=== PATIENT | male | born 1995 | race African-American/Black ===

== ENCOUNTER 2017-06-09 11:46 | Emergency (ER) | payer OTHER ==
[~2017-06-09] VITALS: Ht 185.4 cm; Wt 82.6 kg
[2017-06-09 12:22] LABS: BACTERIA,URINE FEW /HPF (0-FEW); BILIRUBIN,URINE NEG (NEG); CLARITY,URINE HAZY; COLOR,URINE AMBER; GLUCOSE,URINE NEG (NEG); GRANULAR CASTS,URINE OCC /HPF; HYALINE CASTS, URINE OCC /HPF; NITRITE,URINE NEG (NEG); RBC,URINE OCC /HPF (0-2); SQUAMOUS EPITHELIAL CELL,UR OCC /LPF; UROBILINOGEN,URINE 1 mg/dL (0.2 mg/dL)
--- NOTE | 2017-06-09 12:27 | PHYS DOC ---
Past History Past Medical History: No Pertinent History Past Surgical History: No Surgical History Alcohol Use: Occasionally Drug Use: None Adult General Chief Complaint Chief Complaint: PAIN ON URINATION HPI HPI Patient is a pleasant 21-year-old -[place] male who presents with dysuria and a penile discharge after having unprotected intercourse with a new sexual partner a days ago. Patient has had a history of STD in the past where he received treatment and his symptoms cleared up. He medical about 8 days ago at the club had unprotected sex with this particular individual and 4 days ago developed a clear discharge from his penis. He denies any fevers, chills, abdominal pain, difficulty urinating, rash, joint pain, joint swelling or headache. He denies any back pain, he also further denies any rash or associated lesions with this particular discharge. Review of Systems Review of Systems Constitutional: Denies fever or chills [] GI: Denies abdominal pain, nausea, vomiting, bloody stools or diarrhea [] : Patient does have a complaint of mild dysuria and discharge without hematuria urgency or frequency Musculoskeletal: Denies back pain or joint pain [] Integument: Denies rash or skin lesions [] Neurologic: Denies headache, Allergies Allergies Allergies Coded Allergies Type Severity Reaction Last Updated Verified No Known Drug Allergies 06/09/17 No Physical Exam Physical Exam Vital signs stable of the ones recorded on the chart. Constitutional: Well developed, well nourished, no acute distress, non-toxic appearance. [] Abdomen: Bowel sounds normal, soft, no tenderness, no masses, no pulsatile masses. : Normal external male genitalia at the glans and head of the penis there is a slight clear discharge. There is no lesions, he does some slight reactive lymphadenopathy in inguinal crease bilaterally and no evidence of rash, abscess , skin breakdown. There are no vesicles. Patient has no testicular tenderness to palpation he has a normal testicular lie with normal cremasteric reflex.[] Skin: Warm, dry, no erythema, no rash. [] Neurologic: Alert and oriented X 3, . [] Psychologic: Affect normal, judgement normal, mood normal. [] Current Patient Data Vital Signs Vital Signs Date Time Temp Pulse Resp B/P (MAP) Pulse Ox O2 Delivery O2 Flow Rate FiO2 06/09/17 12:00 98.4 97 16 99 Room Air EKG EKG [] Radiology/Procedures Radiology/Procedures [] Course & Med Decision Making Course & Med Decision Making Pertinent Labs and Imaging studies reviewed. (See chart for details) [he presents with a urethritis picture. Patient provided urine sample without issue no signs of infection, on physical exam there is clear signs of urethritis patient was given a dose of 1 g of azithromycin by mouth and 2-50 mg of IM Rocephin to treat both nongonococcal and gonococcal urethritis. I have given him empiric treatment and asked him to follow-up with his regular primary care doctor and to inform his other sexual partners of this exposure. Dragon Disclaimer Dragon Disclaimer This chart was dictated in whole or in part using Voice Recognition software in a busy, high-work load, and often noisy Emergency Department environment. It may contain unintended and wholly unrecognized errors or omissions. Departure Departure: Impression: Primary Impression: Urethritis Disposition: 01 HOME, SELF-CARE Condition: STABLE Referrals: PCP,UNKNOWN (PCP) Patient Instructions: Urethritis, Adult Additional Instructions: My discharge plan Follow up: In addition patient is asked to followup with their primary doctor, within a week for followup examination and to address patient's ongoing medical conditions. Because patient does not have a regular medical doctor, a local physician Resource Sheet will be provided to establish care primary care. Patient is advised that in the Emergency Department primary complaints are addressed and only in light of known signs and symptoms. Patient should return immediately to the emergency department if new signs and symptoms develop or patient's condition worsens in any way. At time of discharge patient was in stable condition and had verbalized understanding of the discharge instructions. If you've any identified your sexual partner please inform her of your sexual transmitted disease. She will need treatment as well KEYON HAM MD Jun 09, 2017 12:27
[2017-06-09 12:50] VITALS: BP 134/77
[2017-06-09] MEDS ORDERED: cefTRIAXone IM 250 MG VIAL IM ONE (13:00)
[2017-06-09] MEDS ORDERED: AZITHROMYCIN 250 MG TABLET. PO ONE (13:00)
== END 2017-06-09 12:53 | disposition home or self-care (01) ==
LOC: ER 11:46
DX: N34.2 Other urethritis (principal)
CPT/HCPCS: 81001; 87086; 96372; 99284; J0456; J0696

== ENCOUNTER 2017-08-25 20:38 | Emergency (ER) | payer OTHER ==
[~2017-08-25] VITALS: Ht 185.4 cm; Wt 82.6 kg
[2017-08-25 20:38] VITALS: BP 140/69
[2017-08-25] MEDS ORDERED: ONDANSETRON ODT 4 MG TAB.RAPDIS ONE (22:42)
[2017-08-25 23:32] LABS: INFLUENZA A PATIENT NEGATIVE (NEGATIVE); INFLUENZA B PATIENT NEGATIVE (NEGATIVE)
--- NOTE | 2017-08-25 23:51 | ED.ADGEN ---
Past History Past Medical History: No Pertinent History Past Surgical History: No Surgical History Alcohol Use: Occasionally Drug Use: None Adult General Chief Complaint Chief Complaint " I ve been hurting... down here in my abd...." HPI HPI Patient is a 21 year old male who presents with above hx and complaints. Pt. localizes pain in Rt. lower quadrant. No hx of trauma, travel or ill contacts. Some question of possible bad food. Pt. reports normal stool.s No hx of immunosuppression. Review of Systems Review of Systems Constitutional: Denies fever or chills [] Eyes: Denies change in visual acuity, redness, or eye pain [] HENT: Denies nasal congestion or sore throat [] Respiratory: Denies cough or shortness of breath [] Cardiovascular: No additional information not addressed in HPI [] GI: complaints of abdominal pain, nausea, : Denies dysuria or hematuria [] Musculoskeletal: Denies back pain or joint pain [] Integument: Denies rash or skin lesions [] Neurologic: Denies headache, focal weakness or sensory changes [] Endocrine: Denies polyuria or polydipsia [] All other systems were reviewed and found to be within normal limits, except as documented in this note. Family History Family History Non-contributory Current Medications Current Medications Current Medications Medications (Trade) Dose Ordered Sig/Nighat Start Time Stop Time Status Last Admin Dose Admin Famotidine (Pepcid Vial) 20 mg 1X ONCE 08/26/17 00:30 08/26/17 00:31 DC 08/26/17 00:36 20 MG Info (Do NOT chart on this entry -- for MONITORING) 1 each PRN DAILY PRN 08/26/17 00:30 08/28/17 00:29 Iohexol (Omnipaque 240 Mg/ml) 50 ml 1X ONCE 08/26/17 01:00 08/26/17 01:01 DC 08/26/17 02:40 50 ML Iohexol (Omnipaque 300 Mg/ml) 75 ml 1X ONCE 08/26/17 01:00 08/26/17 01:01 DC 08/26/17 02:40 75 ML Magnesium Hydroxide (Milk Of Magnesia) 2,400 mg 1X ONCE 08/26/17 04:00 08/26/17 04:01 DC 08/26/17 03:45 2,400 MG Ondansetron HCl (Zofran Odt) 8 mg 1X ONCE 08/26/17 04:00 08/26/17 04:01 DC 08/25/17 22:43 8 MG Ondansetron HCl (Zofran) 8 mg 1X ONCE 08/26/17 00:30 08/26/17 00:31 DC 08/26/17 00:36 8 MG Sodium Chloride 1,000 ml @ 100 mls/hr Q10H 08/26/17 00:30 08/26/17 10:29 08/26/17 00:39 100 MLS/HR Allergies Allergies Allergies Coded Allergies Type Severity Reaction Last Updated Verified No Known Drug Allergies 06/09/17 No Physical Exam Physical Exam Constitutional: Well developed, well nourished, no acute distress, non-toxic appearance. [] HENT: Normocephalic, atraumatic, bilateral external ears normal, oropharynx moist, no oral exudates, nose normal. [] Eyes: PERRLA, EOMI, conjunctiva normal, no discharge. [] Neck: Normal range of motion, no tenderness, supple, no stridor. [] Cardiovascular:Heart rate regular rhythm, no murmur [] Lungs & Thorax: Bilateral breath sounds clear to auscultation [] Abdomen: Bowel sounds normal, soft, Rt, lower abd. tenderness, no masses, no pulsatile masses. [] Pt. declines rectal exam. No testicular tenderness or penile discharge. Skin: Warm, dry, no erythema, no rash. [] Back: No tenderness, no CVA tenderness. [] Extremities: No tenderness, no cyanosis, no clubbing, ROM intact, no edema. [] Neurologic: Alert and oriented X 3, normal motor function, normal sensory function, no focal deficits noted. [] Psychologic: Affect normal, judgement normal, mood normal. [] Current Patient Data Lab Results Laboratory Tests Test 08/25/17 23:00 08/25/17 23:59 Influenza Type A (Rapid) Negative (NEGATIVE) Influenza Type B (Rapid) Negative (NEGATIVE) Group A Streptococcus Rapid Negative (NEGATIVE) White Blood Count 5.9 x10^3/uL (4.0-11.0) Red Blood Count 4.58 x10^6/uL (4.30-5.70) Hemoglobin 14.6 g/dL (13.0-17.5) Hematocrit 42.5 % (39.0-53.0) Mean Corpuscular Volume 93 fL (79-100) Mean Corpuscular Hemoglobin 32 pg (25-35) Mean Corpuscular Hemoglobin Concent 34 g/dL (31-37) Red Cell Distribution Width 13.7 % (11.5-14.5) Platelet Count 250 x10^3/uL (140-400) Neutrophils (%) (Auto) 44 % (31-73) Lymphocytes (%) (Auto) 45 % (24-48) Monocytes (%) (Auto) 7 % (0-9) Eosinophils (%) (Auto) 4 % (0-3) H Basophils (%) (Auto) 1 % (0-3) Neutrophils # (Auto) 2.6 x10^3uL (1.8-7.7) Lymphocytes # (Auto) 2.6 x10^3/uL (1.0-4.8) Monocytes # (Auto) 0.4 x10^3/uL (0.0-1.1) Eosinophils # (Auto) 0.2 x10^3/uL (0.0-0.7) Basophils # (Auto) 0.1 x10^3/uL (0.0-0.2) Prothrombin Time 11.0 SEC (9.4-11.4) Prothrombin Time INR 1.1 (0.9-1.1) PTT 25 SEC (23-33) Urine Collection Type Unknown Urine Color Yellow Urine Clarity Clear Urine pH 6.5 Urine Specific [place] 1.020 Urine Protein Neg (NEG-TRACE) Urine Glucose (UA) Neg mg/dL (NEG) Urine Ketones (Stick) Neg mg/dL (NEG) Urine Blood Trace (NEG) Urine Nitrite Neg (NEG) Urine Bilirubin Neg (NEG) Urine Urobilinogen Dipstick 0.2 mg/dL (0.2 mg/dL) Urine Leukocyte Esterase Neg (NEG) Urine RBC Occ /HPF (0-2) Urine WBC 0 /HPF (0-4) Urine Squamous Epithelial Cells Few /LPF Urine Bacteria Few /HPF (0-FEW) Sodium Level 140 mmol/L (136-145) Potassium Level 4.1 mmol/L (3.5-5.1) Chloride Level 104 mmol/L (98-107) Carbon Dioxide Level 29 mmol/L (21-32) Anion Gap 7 (6-14) Blood Urea Nitrogen 10 mg/dL (8-26) Creatinine 1.2 mg/dL (0.7-1.3) Estimated GFR (Cockcroft-Gault) 91.6 Glucose Level 90 mg/dL (70-99) Calcium Level 8.8 mg/dL (8.5-10.1) Total Bilirubin 0.2 mg/dL (0.2-1.0) Direct Bilirubin 0.1 mg/dL (0.0-0.2) Aspartate Amino Transferase (AST) 21 U/L (15-37) Alanine Aminotransferase (ALT) 24 U/L (16-63) Alkaline Phosphatase 54 U/L (46-116) Total Protein 7.4 g/dL (6.4-8.2) Albumin 4.0 g/dL (3.4-5.0) Lipase 200 U/L (73-393) EKG EKG [] Radiology/Procedures Radiology/Procedures My interpretation of Abd. film shows increased stool. No free air under diaphragm. Does have a isolated bowel loop. CT reports no acute surgical process or hydronephrosis. Course & Med Decision Making Course & Med Decision Making Pertinent Labs and Imaging studies reviewed. (See chart for details) Patient's stay on a clear fluid diet for the next 2 days. Clear fluids. Take Tylenol for pain. Follow-up primary care. Follow-up all labs primary care. Return if any concerns. [] Final Impression Final Impression 1, Abdomen Pain 2. Constipation 3. Viral Syndrome[] Problems: Dragon Disclaimer Dragon Disclaimer This electronic medical record was generated, in whole or in part, using a voice recognition dictation system. KOSTA POP MD Aug 25, 2017 23:51
[2017-08-26] MEDS ORDERED: ONDANSETRON PF 4 MG/2 ML VIAL. ONE (00:16)
[2017-08-26] MEDS ORDERED: FAMOTIDINE 20 MG/2 ML VIAL ONE (00:16)
[2017-08-26] MEDS ORDERED: CONTRAST GIVEN MC PRN (00:30)
[2017-08-26] MEDS ORDERED: ONDANSETRON PF 4 MG/2 ML VIAL. IV ONE (00:30)
[2017-08-26] MEDS ORDERED: IV NORMAL SALINE 1,000ML 1,000 ML IV SCH (00:30)
[2017-08-26] MEDS ORDERED: FAMOTIDINE 20 MG/2 ML VIAL IVP ONE (00:30)
[2017-08-26] MEDS ORDERED: IOHEXOL 300 MG/ML 75 ML VIAL. IV ONE (01:00)
[2017-08-26] MEDS ORDERED: IOHEXOL 240 MG/ML 50ML VIAL. PO ONE (01:00)
[2017-08-26 01:06] LABS: BASO # 0.1 x10^3/uL (0.0-0.2); BASO % 1 % (0-3); EOS # 0.2 x10^3/uL (0.0-0.7); EOS % 4 % (0-3); HEMATOCRIT 42.5 % (39.0-53.0); HEMOGLOBIN 14.6 g/dL (13.0-17.5); LYMPH # 2.6 x10^3/uL (1.0-4.8); LYMPH % 45 % (24-48); MEAN CORPUSCULAR HEMOGLOBIN 32 pg (25-35); MEAN CORPUSCULAR HGB CONC 34 g/dL (31-37); MEAN CORPUSCULAR VOLUME 93 fL (79-100); MONO # 0.4 x10^3/uL (0.0-1.1); MONO % 7 % (0-9); NEUT # 2.6 x10^3uL (1.8-7.7); NEUT % 44 % (31-73); PLATELET COUNT 250 x10^3/uL (140-400); RED BLOOD COUNT 4.58 x10^6/uL (4.30-5.70); RED CELL DISTRIBUTION WIDTH 13.7 % (11.5-14.5); WHITE BLOOD COUNT 5.9 x10^3/uL (4.0-11.0)
[2017-08-26 01:07] LABS: CALCIUM 8.8 mg/dL (8.5-10.1); CREATININE 1.2 mg/dL (0.7-1.3); DIRECT BILIRUBIN 0.1 mg/dL (0.0-0.2); GFR 91.6; POTASSIUM 4.1 mmol/L (3.5-5.1); TOTAL BILIRUBIN 0.2 mg/dL (0.2-1.0); TOTAL PROTEIN 7.4 g/dL (6.4-8.2)
[2017-08-26 01:15] LABS: BILIRUBIN,URINE NEG (NEG); CLARITY,URINE CLEAR; COLOR,URINE YELLOW; GLUCOSE,URINE NEG (NEG)
[2017-08-26 01:16] LABS: BACTERIA,URINE FEW /HPF (0-FEW); NITRITE,URINE NEG (NEG); RBC,URINE OCC /HPF (0-2); SQUAMOUS EPITHELIAL CELL,UR FEW /LPF; UROBILINOGEN,URINE 0.2 mg/dL (0.2 mg/dL); WBC,URINE 0 /HPF (0-4)
--- NOTE | 2017-08-26 03:37 | RAD ---
EXAM: CT ABDOMEN/PELVIS WITH CONTRAST. HISTORY: Right lower abdominal and pelvic pain. TECHNIQUE: Computed tomography of the abdomen and pelvis was performed after the intravenous administration of 75 mL Omnipaque 300. COMPARISON: None. FINDINGS: Lung windows through the visualized portions of the bases reveal mild atelectasis. Bone windows reveal no suspicious lesions. The appendix is not inflamed. There is no obstruction. There are no pathologically enlarged lymph nodes. The liver, gallbladder, pancreas, adrenal glands, kidneys and spleen are unremarkable. Stool throughout the colon is consistent with constipation. IMPRESSION: 1. No cause for acute pain is identified. Correlate for constipation. *One or more of the following individualized dose reduction techniques were utilized for this examination: 1. Automated exposure control. 2. Adjustment of the mA and/or kV according to patient size. 3. Use of iterative reconstruction technique. Electronically signed by: Kiki Tony MD (08/26/2017 3:33 AM) [facility]
[2017-08-26] MEDS ORDERED: MAGNESIUM HYDROXIDE 2,400 MG/30 ML ORAL.SUSP. ONE (03:44)
[2017-08-26] MEDS ORDERED: MAGNESIUM HYDROXIDE 2,400 MG/30 ML ORAL.SUSP. PO ONE (04:00)
[2017-08-26] MEDS ORDERED: ONDANSETRON ODT 4 MG TAB.RAPDIS PO ONE (04:00)
[2017-08-26] MEDS ORDERED: ONDA8TAB12 PO (04:03)
--- NOTE | 2017-08-26 07:47 | RAD ---
EXAM: Abdomen acute complete. HISTORY: Pain. COMPARISON: None. FINDINGS: A frontal view of the chest and frontal upright and supine views of the abdomen are obtained. There is no infiltrate, effusion or pneumothorax. The heart is normal in size. There is no free air. There is a prominent nonspecific air-filled loop of bowel within the midabdomen. There is no transition point to suggest obstruction. There is colonic stool.. IMPRESSION: 1. No acute bony finding. 2. Nonspecific bowel gas pattern. There is a prominent air-filled loop of bowel within the midabdomen, without a transition point to suggest obstruction.
== END 2017-08-26 04:23 | disposition home or self-care (01) ==
LOC: ER 20:38
DX: B34.9 Viral infection, unspecified (principal); K59.00 Constipation, unspecified
CPT/HCPCS: 36415; 74022; 74177; 80048; 80076; 81001; 83690; 85025; 85610; 85730; 87070; 87804; 87880; 96361; 96374; 96375; 99285; J2405; Q0162; Q9966; Q9967; S0028; J7030

== ENCOUNTER 2017-08-30 23:19 | Inpatient (IN) | payer OTHER ==
[~2017-08-30] VITALS: Ht 185.4 cm; Wt 85.3 kg
[~2017-08-30 23:19] MED LIST: ONDA8TAB12 PO
[2017-08-31] VITALS (8 sets, daily range): BP systolic 107–145; BP diastolic 62–77
[2017-08-31] MEDS ORDERED: IV NORMAL SALINE 1,000ML 1,000 ML IV ONE
[2017-08-31] MEDS ORDERED: diphenhydrAMINE 50 MG/ML VIAL IVP ONE (00:15)
[2017-08-31] MEDS ORDERED: METOCLOPRAMIDE HCL 10 MG/2 ML VIAL. IV ONE (00:15)
--- NOTE | 2017-08-31 00:58 | RAD ---
RS Compliance Statement: One or more of the following individualized dose reduction techniques were utilized for this examination: 1. Automated exposure control 2. Adjustment of the mA and/or kV according to patient size 3. Use of iterative reconstruction technique CT HEAD WITHOUT CONTRAST History: Severe headache, syncopal episode today. Comparison: None. Procedure: Axial images are obtained of the head from the skull base through the vertex without IV contrast. Findings: Motion artifact moderately degrades image quality near the skull base. The ventricles and sulci are normal for the patient's age. No mass-effect, midline shift, hemorrhage, extra-axial fluid collection, or obvious acute infarction is identified. Basilar cisterns are patent. Bone windows demonstrate no acute calvarial abnormality. The visualized paranasal sinuses are clear. Mastoid air cells are well aerated. IMPRESSION: 1. Exam limited due to motion artifact. 2. No acute intracranial abnormality. Electronically signed by: Marcelino Bansal MD (08/31/2017 12:55 AM) [facility]
[2017-08-31 01:32] LABS: BASO % 0 % (0-3); EOS # 0.2 x10^3/uL (0.0-0.7); EOS % 3 % (0-3); HEMATOCRIT 43.2 % (39.0-53.0); LYMPH # 0.6 x10^3/uL (1.0-4.8); LYMPH % 6 % (24-48); MEAN CORPUSCULAR HEMOGLOBIN 32 pg (25-35); MEAN CORPUSCULAR HGB CONC 35 g/dL (31-37); MEAN CORPUSCULAR VOLUME 93 fL (79-100); MONO # 0.6 x10^3/uL (0.0-1.1); MONO % 7 % (0-9); NEUT # 7.6 x10^3uL (1.8-7.7); NEUT % 84 % (31-73); PLATELET COUNT 227 x10^3/uL (140-400); RED BLOOD COUNT 4.67 x10^6/uL (4.30-5.70); WHITE BLOOD COUNT 9.1 x10^3/uL (4.0-11.0)
--- NOTE | 2017-08-31 01:33 | EKG ---
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
[2017-08-31 01:42] LABS: CALCIUM 9.2 mg/dL (8.5-10.1); CREATININE 1.4 mg/dL (0.7-1.3); GFR 76.7; POTASSIUM 4.2 mmol/L (3.5-5.1)
[2017-08-31 01:49] LABS: DIRECT BILIRUBIN 0.2 mg/dL (0.0-0.2); TOTAL BILIRUBIN 0.6 mg/dL (0.2-1.0); TOTAL PROTEIN 7.6 g/dL (6.4-8.2)
--- NOTE | 2017-08-31 02:27 | PHYS DOC ---
Past History Past Medical History: No Pertinent History Past Surgical History: No Surgical History Alcohol Use: Occasionally Drug Use: None Adult General Chief Complaint Chief Complaint: SYNCOPE HPI HPI 21-year-old male presenting to the emergency department today after having cough congestion and fever muscle aches and generally not feeling well. He also complains of a headache. Today he had a syncopal episode. He denies any tongue biting or urinary incontinence. Location generalized. Duration intermittent. Review of systems is negative for neck stiffness confusion cyanosis lethargy. He denies numbness weakness or tingling vision changes or slurred speech. All other review of systems is negative unless otherwise noted in history of present illness. ED course: 21-year-old male presenting to the emergency department with fever cough congestion and muscle aches. Influenza-like symptoms. Patient was febrile here in the emergency room. He was given IV fluids along with Tamiflu and an antipyretic. Head CT obtained which was unremarkable. EKG obtained and reviewed by myself without previous for comparison shows T-wave abnormalities in the anterior lateral leads. Patient denies chest pain. Blood work sent which showed normal CBC. Chemistry panel unremarkable. Troponin negative. Given the patient' s syncope and EKG findings I felt the patient would benefit from urgent cardiology consultation and possible echocardiogram. The patient was then admitted to our hospital for further evaluation workup and care. Review of Systems Review of Systems SEE ABOVE. Current Medications Current Medications Current Medications Medications (Trade) Dose Ordered Sig/Nighat Start Time Stop Time Status Last Admin Dose Admin Diphenhydramine HCl (Benadryl) 25 mg 1X ONCE 08/31/17 00:15 08/31/17 00:16 DC 08/31/17 00:35 25 MG Metoclopramide HCl (Reglan Vial) 10 mg 1X ONCE 08/31/17 00:15 08/31/17 00:16 DC 08/31/17 00:35 10 MG Sodium Chloride 1,000 ml @ 1,000 mls/hr 1X ONCE 08/31/17 00:00 08/31/17 00:59 DC 08/31/17 00:34 1,000 MLS/HR Allergies Allergies Allergies Coded Allergies Type Severity Reaction Last Updated Verified No Known Drug Allergies 06/09/17 No Physical Exam Physical Exam SEE ABOVE Constitutional: Well developed, well nourished, no acute distress, non-toxic appearance. [] HENT: Normocephalic, atraumatic, bilateral external ears normal, oropharynx moist, no oral exudates, nose normal. [] Eyes: PERRLA, EOMI, conjunctiva normal, no discharge. [] Neck: Normal range of motion, no tenderness, supple, no stridor. [] Cardiovascular:Heart rate regular rhythm, no murmur [] Lungs & Thorax: Bilateral breath sounds clear to auscultation [] Abdomen: Bowel sounds normal, soft, no tenderness, no masses, no pulsatile masses. [] Skin: Warm, dry, no erythema, no rash. [] Back: No tenderness, no CVA tenderness. [] Extremities: No tenderness, no cyanosis, no clubbing, ROM intact, no edema. [] Neurologic: Alert and oriented X 3, normal motor function, normal sensory function, no focal deficits noted. [] Psychologic: Affect normal, judgement normal, mood normal. [] Current Patient Data Vital Signs Vital Signs Date Time Temp Pulse Resp B/P (MAP) Pulse Ox O2 Delivery O2 Flow Rate FiO2 08/31/17 01:00 100.4 84 18 123/70 (87) 96 Room Air Lab Results Laboratory Tests Test 08/30/17 23:55 White Blood Count 9.1 x10^3/uL (4.0-11.0) # Red Blood Count 4.67 x10^6/uL (4.30-5.70) Hemoglobin 15.0 g/dL (13.0-17.5) Hematocrit 43.2 % (39.0-53.0) Mean Corpuscular Volume 93 fL (79-100) Mean Corpuscular Hemoglobin 32 pg (25-35) Mean Corpuscular Hemoglobin Concent 35 g/dL (31-37) Red Cell Distribution Width 14.0 % (11.5-14.5) Platelet Count 227 x10^3/uL (140-400) Neutrophils (%) (Auto) 84 % (31-73) H Lymphocytes (%) (Auto) 6 % (24-48) L Monocytes (%) (Auto) 7 % (0-9) Eosinophils (%) (Auto) 3 % (0-3) Basophils (%) (Auto) 0 % (0-3) Neutrophils # (Auto) 7.6 x10^3uL (1.8-7.7) Lymphocytes # (Auto) 0.6 x10^3/uL (1.0-4.8) L Monocytes # (Auto) 0.6 x10^3/uL (0.0-1.1) Eosinophils # (Auto) 0.2 x10^3/uL (0.0-0.7) Basophils # (Auto) 0.0 x10^3/uL (0.0-0.2) Sodium Level 141 mmol/L (136-145) Potassium Level 4.2 mmol/L (3.5-5.1) Chloride Level 104 mmol/L (98-107) Carbon Dioxide Level 29 mmol/L (21-32) Anion Gap 8 (6-14) Blood Urea Nitrogen 11 mg/dL (8-26) Creatinine 1.4 mg/dL (0.7-1.3) H Estimated GFR (Cockcroft-Gault) 76.7 Glucose Level 93 mg/dL (70-99) Calcium Level 9.2 mg/dL (8.5-10.1) Total Bilirubin 0.6 mg/dL (0.2-1.0) Direct Bilirubin 0.2 mg/dL (0.0-0.2) Aspartate Amino Transferase (AST) 28 U/L (15-37) Alanine Aminotransferase (ALT) 22 U/L (16-63) Alkaline Phosphatase 59 U/L (46-116) Troponin I Quantitative < 0.017 ng/mL (0-0.055) Total Protein 7.6 g/dL (6.4-8.2) Albumin 4.0 g/dL (3.4-5.0) Lipase 154 U/L (73-393) EKG EKG [] Radiology/Procedures Radiology/Procedures [] Course & Med Decision Making Course & Med Decision Making Pertinent Labs and Imaging studies reviewed. (See chart for details) [] Dragon Disclaimer Dragon Disclaimer This electronic medical record was generated, in whole or in part, using a voice recognition dictation system. Departure Departure: Impression: Primary Impression: Syncope Additional Impressions: Abnormal EKG Flu-like symptoms Disposition: ADMITTED INPATIENT Admitting Physician: Zoya Riojas Condition: STABLE Referrals: NON,STAFF (PCP) Problem Qualifiers DAMIAN HENNESSY MD Aug 31, 2017 02:27
[2017-08-31] MEDS ORDERED: OSELTAMIVIR 75 MG CAPSULE PO ONE (02:30)
[2017-08-31] MEDS ORDERED: ONDANSETRON PF 4 MG/2 ML VIAL. IV PRN (02:45)
[2017-08-31] MEDS ORDERED: MORPHINE SULFATE 2 MG/ML DISP.SYRIN. IV PRN (02:45)
[2017-08-31 03:12] LABS: INFLUENZA A PATIENT NEGATIVE (NEGATIVE); INFLUENZA B PATIENT NEGATIVE (NEGATIVE)
[2017-08-31] MEDS: IV NORMAL SALINE 1,000ML 1,000 ML IV SCH ×3 (04:11→19:55)
[2017-08-31] MEDS ORDERED: [UNRECOGNIZED DRUG - OTHER] PO (04:25)
--- NOTE | 2017-08-31 04:28 | NUR ---
The patient, MARCO HILARIO, 21 y/o, M admitted by LIANE PORTER DO, was given written information regarding hospital policies, unit procedures and contact persons. Patient came to the unit at 400 from the ED with a diagnosis of syncope. patient was placed on tele. Patient observed alert x4. vs checked. Denied any nausea or vomiting. Patient reported having some headache at this time. patient states that he doesn't have any medical history or family medical history. He reports that he doesn't take any medication except for Nyquil OTC. Patient is ambulatory. able to verbalize understanding of instructions given. Call light within reach. Will continue monitoring. Valuables were checked and left with patient.
--- NOTE | 2017-08-31 06:48 | NUR ---
Cardiology consult called to Lianne Jeronimo/Travis with answering service. Awaiting call back.
[2017-08-31] MEDS ORDERED: ACETAMINOPHEN 325 MG TABLET PO PRN (12:30)
--- NOTE | 2017-08-31 13:38 | HP ---
ADMIT DATE: 08/31/2017 REASON FOR ADMISSION: Syncopal episode. 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 Prior to that, he felt weak and had taken a nap. He also had cough, congestion and muscle aches and some sore throat and chills. PAST MEDICAL HISTORY: Negative. PAST SURGICAL HISTORY: Negative. REVIEW OF SYSTEMS: Positive for some slight shortness of breath associated with his smoke. HABITS: Smokes 1 pack per day. Social alcohol. FAMILY HISTORY: Grandmother with diabetes. He is an active duty . MEDICATIONS: None. ALLERGIES: None. OBJECTIVE: VITAL SIGNS: Temperature in the Emergency Room , this morning it is 98.7, blood pressure 119/68, pulse 74, respirations 18, pulse ox 97% on room air. HEENT: Eyes were clear. TMs were intact bilaterally without redness or bulging drums. Nose was patent. Throat was clear. Slightly erythematous in the posterior pharynx. NECK: Supple, without adenopathy. LUNGS: Clear to auscultation. CARDIOVASCULAR: Regular rhythm and rate. ABDOMEN: Soft, nontender. EXTREMITIES: Without edema. LABORATORY DATA: White blood cell count is 9.1, 84% neutrophils, 6 lymphs. Troponins were negative x 2. Creatinine slightly elevated at 1.4. Influenza was negative. He was orthostatically positive. ASSESSMENT: 1. Syncope, questionable etiology, may be related to current illness. 2. Acute kidney injury related to dehydration. 3. Orthostatic. 4. Abnormal EKG. we will ask Cardiology to see. 5. Febrile illness. Flu was negative. PLAN: IV fluids. The patient received Tamiflu in the Emergency Room. He also received fluid bolus. I will wait to see what Cardiology has to say and/or echo has also been ordered. LIANE PORTER DO DR: RACHEL/gio JOB#: [id number] / [id number]
--- NOTE | 2017-08-31 14:17 | CARD ---
MR#: [id number] Date of Study: 08/31/2017 Ordering Physician: LIANE PORTER, Referring Physician: Kendell JUNG: Wilbur Horner [facility] APPROVED REPORT EXAM: Two-dimensional and M-mode echocardiogram with Doppler and color Doppler. Other Information Quality : ExcellentHR: 67bpm INDICATION Syncope 2D DIMENSIONS Left Atrium(2D)2.8 (1.6-4.0cm)IVSd1.1 (0.7-1.1cm) Aortic Root(2D)2.8 (2.0-3.7cm)LVDd4.5 (3.9-5.9cm) LVOT Diameter2.3 (1.8-2.4cm)PWd1.1 (0.7-1.1cm) LVDs2.5 (2.5-4.0cm)FS (%) 34.9 % SV37.9 mlLVEF(%)65.0 (>50%) Aortic Valve AoV Peak Dustin.136.5cm/sAoV VTI27.2cm AO Peak GR.7.5mmHgLVOT Peak Dustin.119.1cm/s AO Mean GR.4mmHgAVA (VMAX)3.60cm2 Mitral Valve MV E Znlibrqo67.6cm/sMV DECEL DSVB042cu MV A Ksisqpax45.2cm/sE/A Ratio1.5 Pulmonary Valve PV Peak Fapkyapv291.2cm/sPV Peak Grad.7mmHg Tricuspid Valve TR P. Abboemyv590uk/sTR Peak Gr.13mmHg LEFT VENTRICLE The left ventricle is normal size. There is normal left ventricular wall thickness. The left ventricu lar systolic function is normal and the ejection fraction is within normal range. EF 65% There is nor mal LV segmental wall motion. The left ventricular diastolic function and filling is normal for age. RIGHT VENTRICLE The right ventricle is normal size. The right ventricular systolic function is normal. ATRIA The left atrium size is normal. The right atrium size is normal. The interatrial septum is intact wit h no evidence for an atrial septal defect or patent foramen ovale as noted on 2-D or Doppler imaging. AORTIC VALVE The aortic valve is normal in structure and function. Doppler and Color Flow revealed no significant aortic regurgitation. There is no significant aortic valvular stenosis. There is no aortic valvular v egetation. MITRAL VALVE The mitral valve is normal in structure and function. There is no evidence of mitral valve prolapse. There is no mitral valve stenosis. Doppler and Color Flow revealed no mitral valve regurgitation note d. TRICUSPID VALVE The tricuspid valve is normal in structure and function. Doppler and Color Flow revealed trace tricus pid regurgitation. There is no tricuspid valve prolapse or vegetation. There is no tricuspid valve st enosis. PULMONIC VALVE Doppler and Color Flow revealed trace to mild pulmonic valvular regurgitation. There is no pulmonic v alvular stenosis. GREAT VESSELS The aortic root is normal in size. The IVC is normal in size and collapses >50% with inspiration. PERICARDIAL EFFUSION There is no pleural effusion. There is no evidence of significant pericardial effusion. Critical Notification Critical Value: No <Conclusion> The left ventricular systolic function is normal and the ejection fraction is within normal range. EF 65% There is normal LV segmental wall motion. No valvular disease. Signed by : Juvenal Fritz, Electronically Approved : 08/31/2017 14:16:48
[2017-08-31 15:17] LABS: BARBITURATES NEG (NEG); BENZODIAZEPINES NEG (NEG); CANNABINOIDS NEG (NEG); COCAINE NEG (NEG); METHADONE NEG (NEG); OPIATES NEG (NEG); PHENCYCLIDINE NEG (NEG)
[2017-08-31 15:21] LABS: AMPHETAMINE/METHAMPHETAMINE NEG (NEG)
--- NOTE | 2017-08-31 15:24 | EKG ---
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
[2017-08-31 15:42] LABS: INFLUENZA A PATIENT NEGATIVE (NEGATIVE); INFLUENZA B PATIENT NEGATIVE (NEGATIVE)
[2017-09-01 05:50] VITALS: BP 101/55
[2017-09-01 06:51] LABS: BASO % 1 % (0-3); EOS # 0.2 x10^3/uL (0.0-0.7); EOS % 5 % (0-3); HEMATOCRIT 39.3 % (39.0-53.0); HEMOGLOBIN 13.4 g/dL (13.0-17.5); LYMPH # 1.7 x10^3/uL (1.0-4.8); LYMPH % 33 % (24-48); MEAN CORPUSCULAR HEMOGLOBIN 32 pg (25-35); MEAN CORPUSCULAR HGB CONC 34 g/dL (31-37); MEAN CORPUSCULAR VOLUME 94 fL (79-100); MONO # 0.6 x10^3/uL (0.0-1.1); MONO % 12 % (0-9); NEUT # 2.6 x10^3uL (1.8-7.7); NEUT % 50 % (31-73); PLATELET COUNT 194 x10^3/uL (140-400); RED BLOOD COUNT 4.19 x10^6/uL (4.30-5.70); RED CELL DISTRIBUTION WIDTH 13.8 % (11.5-14.5); WHITE BLOOD COUNT 5.3 x10^3/uL (4.0-11.0)
[2017-09-01 06:58] LABS: CALCIUM 8.8 mg/dL (8.5-10.1); CREATININE 1.2 mg/dL (0.7-1.3); GFR 91.6; POTASSIUM 4.3 mmol/L (3.5-5.1)
--- NOTE | 2017-09-01 11:46 | NUR ---
Pt discharged from the hospital, IV discontinued, instructions provided to pt, no questions or concerns at this time. Pt accompanied by friend, ambulated off the unit.
--- NOTE | 2017-09-01 11:50 | PDOC3 ---
Discharge Summary Visit Information Date of Admission: Aug 31, 2017 Date of Discharge: Sep 01, 2017 Final Diagnosis Problems Medical Problems: (1) Abnormal EKG Status: Acute (2) Flu-like symptoms Status: Acute (3) Syncope Status: Acute MENT: 1. Syncope, questionable etiology, may be related to current illness. 2. Acute kidney injury related to dehydration. 3. Orthostatic. 4. Abnormal EKG. _REPOLARIZATION 5. Febrile illness. Flu was negative. Problems: Brief Hospital Course Allergies Allergies Coded Allergies Type Severity Reaction Last Updated Verified No Known Drug Allergies 06/09/17 No Vital Signs Vital Signs Date Time Temp Pulse Resp B/P (MAP) Pulse Ox O2 Delivery O2 Flow Rate FiO2 09/01/17 08:00 Room Air 09/01/17 05:50 97.7 60 16 101/55 (70) 97 Lab Results Laboratory Tests Test 08/30/17 23:55 08/31/17 02:30 08/31/17 07:40 08/31/17 13:26 White Blood Count 9.1 x10^3/uL (4.0-11.0) Red Blood Count 4.67 x10^6/uL (4.30-5.70) Hemoglobin 15.0 g/dL (13.0-17.5) Hematocrit 43.2 % (39.0-53.0) Mean Corpuscular Volume 93 fL (79-100) Mean Corpuscular Hemoglobin 32 pg (25-35) Mean Corpuscular Hemoglobin Concent 35 g/dL (31-37) Red Cell Distribution Width 14.0 % (11.5-14.5) Platelet Count 227 x10^3/uL (140-400) Neutrophils (%) (Auto) 84 % (31-73) Lymphocytes (%) (Auto) 6 % (24-48) Monocytes (%) (Auto) 7 % (0-9) Eosinophils (%) (Auto) 3 % (0-3) Basophils (%) (Auto) 0 % (0-3) Neutrophils # (Auto) 7.6 x10^3uL (1.8-7.7) Lymphocytes # (Auto) 0.6 x10^3/uL (1.0-4.8) Monocytes # (Auto) 0.6 x10^3/uL (0.0-1.1) Eosinophils # (Auto) 0.2 x10^3/uL (0.0-0.7) Basophils # (Auto) 0.0 x10^3/uL (0.0-0.2) Sodium Level 141 mmol/L (136-145) Potassium Level 4.2 mmol/L (3.5-5.1) Chloride Level 104 mmol/L (98-107) Carbon Dioxide Level 29 mmol/L (21-32) Anion Gap 8 (6-14) Blood Urea Nitrogen 11 mg/dL (8-26) Creatinine 1.4 mg/dL (0.7-1.3) Estimated GFR (Cockcroft-Gault) 76.7 Glucose Level 93 mg/dL (70-99) Calcium Level 9.2 mg/dL (8.5-10.1) Total Bilirubin 0.6 mg/dL (0.2-1.0) Direct Bilirubin 0.2 mg/dL (0.0-0.2) Aspartate Amino Transf (AST/SGOT) 28 U/L (15-37) Alanine Aminotransferase (ALT/SGPT) 22 U/L (16-63) Alkaline Phosphatase 59 U/L (46-116) Troponin I Quantitative < 0.017 ng/mL (0-0.055) < 0.017 ng/mL (0-0.055) < 0.017 ng/mL (0-0.055) Total Protein 7.6 g/dL (6.4-8.2) Albumin 4.0 g/dL (3.4-5.0) Lipase 154 U/L (73-393) Influenza Type A (Rapid) Negative (NEGATIVE) Influenza Type B (Rapid) Negative (NEGATIVE) Magnesium Level 1.8 mg/dL (1.8-2.4) Test 08/31/17 14:55 08/31/17 15:05 09/01/17 06:10 09/01/17 06:16 Influenza Type A (Rapid) Negative (NEGATIVE) Influenza Type B (Rapid) Negative (NEGATIVE) Urine Opiates Screen Neg (NEG) Urine Methadone Screen Neg (NEG) Urine Barbiturates Neg (NEG) Urine Phencyclidine Screen Neg (NEG) Urine Amphetamine/Methamphetamine Neg (NEG) Urine Benzodiazepines Screen Neg (NEG) Urine Cocaine Screen Neg (NEG) Urine Cannabinoids Screen Neg (NEG) Urine Ethyl Alcohol Neg (NEG) White Blood Count 5.3 x10^3/uL (4.0-11.0) Red Blood Count 4.19 x10^6/uL (4.30-5.70) Hemoglobin 13.4 g/dL (13.0-17.5) Hematocrit 39.3 % (39.0-53.0) Mean Corpuscular Volume 94 fL (79-100) Mean Corpuscular Hemoglobin 32 pg (25-35) Mean Corpuscular Hemoglobin Concent 34 g/dL (31-37) Red Cell Distribution Width 13.8 % (11.5-14.5) Platelet Count 194 x10^3/uL (140-400) Neutrophils (%) (Auto) 50 % (31-73) Lymphocytes (%) (Auto) 33 % (24-48) Monocytes (%) (Auto) 12 % (0-9) Eosinophils (%) (Auto) 5 % (0-3) Basophils (%) (Auto) 1 % (0-3) Neutrophils # (Auto) 2.6 x10^3uL (1.8-7.7) Lymphocytes # (Auto) 1.7 x10^3/uL (1.0-4.8) Monocytes # (Auto) 0.6 x10^3/uL (0.0-1.1) Eosinophils # (Auto) 0.2 x10^3/uL (0.0-0.7) Basophils # (Auto) 0.0 x10^3/uL (0.0-0.2) Sodium Level 142 mmol/L (136-145) Potassium Level 4.3 mmol/L (3.5-5.1) Chloride Level 108 mmol/L (98-107) Carbon Dioxide Level 29 mmol/L (21-32) Anion Gap 5 (6-14) Blood Urea Nitrogen 5 mg/dL (8-26) Creatinine 1.2 mg/dL (0.7-1.3) Estimated GFR (Cockcroft-Gault) 91.6 Glucose Level 90 mg/dL (70-99) Calcium Level 8.8 mg/dL (8.5-10.1) Magnesium Level 1.9 mg/dL (1.8-2.4) Brief Hospital Course Mr. 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 Prior to that, he felt weak and had taken a nap. He also had cough, congestion and muscle aches and some sore throat and chills. HE WAS TREATED WITH IV FLUIDS AND TYLENOL. HE WAS SEEN BY CARDIOLOGY AND WILL HAVE AN EVENT MONITOR AN OUTPATIENT AND SEE THE MANAGER COLLEGE IN A WEEK. Discharge Information Condition at Discharge: Improved, Stable Disposition/Orders: D/C to Home Dischare Medications Current Medications Sodium Chloride 1,000 ml @ 1,000 mls/hr 1X ONCE IV Last administered on at 00:34; Start 08/31/17 at 00:00; Stop 08/31/17 at 00:59; Status DC Metoclopramide HCl (Reglan Vial) 10 mg 1X ONCE IV Last administered on at 00:35; Start 08/31/17 at 00:15; Stop 08/31/17 at 00:16; Status DC Diphenhydramine HCl (Benadryl) 25 mg 1X ONCE IVP Last administered on at 00:35; Start 08/31/17 at 00:15; Stop 08/31/17 at 00:16; Status DC Oseltamivir Phosphate (Tamiflu) 75 mg 1X ONCE PO Last administered on at 02:37; Start 08/31/17 at 02:30; Stop 08/31/17 at 02:31; Status DC Ondansetron HCl (Zofran) 4 mg PRN Q4HRS PRN IV NAUSEA/VOMITING; Start 08/31/17 at 02:45; Stop 09/01/17 at 02:44; Status DC Morphine Sulfate (Morphine 2mg Syringe) 2 mg PRN Q2HR PRN IV PAIN; Start at 02:45; Stop 09/01/17 at 02:44; Status DC Sodium Chloride 1,000 ml @ 100 mls/hr Q10H IV Last administered on 08/31/17at 19:55; Start 08/31/17 at 02:45; Stop 09/01/17 at 02:44; Status DC Acetaminophen (Tylenol) 650 mg PRN Q6HRS PRN PO FEVER; Start 08/31/17 at 12:30 Active Scripts Active Reported [Nyquil Cold Medicine] 30 Ml PO PRN QHS PRN LIANE PORTER DO Sep 01, 2017 11:50
--- NOTE | 2017-09-01 12:22 | PDOC2 ---
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 He presents with complaints of passing out. He reports he had been running a fever and having body aches, some coughing, nasal congestion and fatigue. He got up to walk to the door and passed out. He denies loss of continence, bite of tongue or seizure like activity. He denies any preceding symptoms. Past Medical History unremarkable Past Surgical History negative Family History GM with diabetes, no history of premature coronary disease Social History 1ppd smoker, social ETOH, no illicit drug use, Active duty [employer] MP Current Medications Current Medications Sodium Chloride 1,000 ml @ 1,000 mls/hr 1X ONCE IV Last administered on at 00:34; Start 08/31/17 at 00:00; Stop 08/31/17 at 00:59; Status DC Metoclopramide HCl (Reglan Vial) 10 mg 1X ONCE IV Last administered on at 00:35; Start 08/31/17 at 00:15; Stop 08/31/17 at 00:16; Status DC Diphenhydramine HCl (Benadryl) 25 mg 1X ONCE IVP Last administered on at 00:35; Start 08/31/17 at 00:15; Stop 08/31/17 at 00:16; Status DC Oseltamivir Phosphate (Tamiflu) 75 mg 1X ONCE PO Last administered on at 02:37; Start 08/31/17 at 02:30; Stop 08/31/17 at 02:31; Status DC Ondansetron HCl (Zofran) 4 mg PRN Q4HRS PRN IV NAUSEA/VOMITING; Start 08/31/17 at 02:45; Stop 09/01/17 at 02:44; Status DC Morphine Sulfate (Morphine 2mg Syringe) 2 mg PRN Q2HR PRN IV PAIN; Start at 02:45; Stop 09/01/17 at 02:44; Status DC Sodium Chloride 1,000 ml @ 100 mls/hr Q10H IV Last administered on 08/31/17at 19:55; Start 08/31/17 at 02:45; Stop 09/01/17 at 02:44; Status DC Acetaminophen (Tylenol) 650 mg PRN Q6HRS PRN PO FEVER; Start 08/31/17 at 12:30 Active Scripts Active Reported [Nyquil Cold Medicine] 30 Ml PO PRN QHS PRN Allergies: Coded Allergies: No Known Drug Allergies (Unverified , 06/09/17) Review of System as per HPI or negative General: Alert, Oriented X3, Cooperative, No acute distress HEENT: Atraumatic, EOMI, Mucous membr. moist/pink, Other (no carotid bruits) Heart: Regular rate, Normal S1, Normal S2, No murmurs, Other (no gallops, clicks or rubs) Abdomen: Normal bowel sounds, Soft, No tenderness Extremities: No clubbing, No cyanosis, No edema, Normal pulses Neuro: Normal speech, Strength at 5/5 X4 ext Psych/Mental Status: Mental status NL, Mood NL VITALS Vital Signs Date Time Temp Pulse Resp B/P (MAP) Pulse Ox O2 Delivery O2 Flow Rate FiO2 09/01/17 08:00 Room Air 09/01/17 05:50 97.7 60 16 101/55 (70) 97 Labs Laboratory Tests Test 08/30/17 23:55 08/31/17 02:30 08/31/17 07:40 08/31/17 13:26 White Blood Count 9.1 x10^3/uL (4.0-11.0) Red Blood Count 4.67 x10^6/uL (4.30-5.70) Hemoglobin 15.0 g/dL (13.0-17.5) Hematocrit 43.2 % (39.0-53.0) Mean Corpuscular Volume 93 fL (79-100) Mean Corpuscular Hemoglobin 32 pg (25-35) Mean Corpuscular Hemoglobin Concent 35 g/dL (31-37) Red Cell Distribution Width 14.0 % (11.5-14.5) Platelet Count 227 x10^3/uL (140-400) Neutrophils (%) (Auto) 84 % (31-73) Lymphocytes (%) (Auto) 6 % (24-48) Monocytes (%) (Auto) 7 % (0-9) Eosinophils (%) (Auto) 3 % (0-3) Basophils (%) (Auto) 0 % (0-3) Neutrophils # (Auto) 7.6 x10^3uL (1.8-7.7) Lymphocytes # (Auto) 0.6 x10^3/uL (1.0-4.8) Monocytes # (Auto) 0.6 x10^3/uL (0.0-1.1) Eosinophils # (Auto) 0.2 x10^3/uL (0.0-0.7) Basophils # (Auto) 0.0 x10^3/uL (0.0-0.2) Sodium Level 141 mmol/L (136-145) Potassium Level 4.2 mmol/L (3.5-5.1) Chloride Level 104 mmol/L (98-107) Carbon Dioxide Level 29 mmol/L (21-32) Anion Gap 8 (6-14) Blood Urea Nitrogen 11 mg/dL (8-26) Creatinine 1.4 mg/dL (0.7-1.3) Estimated GFR (Cockcroft-Gault) 76.7 Glucose Level 93 mg/dL (70-99) Calcium Level 9.2 mg/dL (8.5-10.1) Total Bilirubin 0.6 mg/dL (0.2-1.0) Direct Bilirubin 0.2 mg/dL (0.0-0.2) Aspartate Amino Transf (AST/SGOT) 28 U/L (15-37) Alanine Aminotransferase (ALT/SGPT) 22 U/L (16-63) Alkaline Phosphatase 59 U/L (46-116) Troponin I Quantitative < 0.017 ng/mL (0-0.055) < 0.017 ng/mL (0-0.055) < 0.017 ng/mL (0-0.055) Total Protein 7.6 g/dL (6.4-8.2) Albumin 4.0 g/dL (3.4-5.0) Lipase 154 U/L (73-393) Influenza Type A (Rapid) Negative (NEGATIVE) Influenza Type B (Rapid) Negative (NEGATIVE) Magnesium Level 1.8 mg/dL (1.8-2.4) Test 08/31/17 14:55 08/31/17 15:05 09/01/17 06:10 09/01/17 06:16 Influenza Type A (Rapid) Negative (NEGATIVE) Influenza Type B (Rapid) Negative (NEGATIVE) Urine Opiates Screen Neg (NEG) Urine Methadone Screen Neg (NEG) Urine Barbiturates Neg (NEG) Urine Phencyclidine Screen Neg (NEG) Urine Amphetamine/Methamphetamine Neg (NEG) Urine Benzodiazepines Screen Neg (NEG) Urine Cocaine Screen Neg (NEG) Urine Cannabinoids Screen Neg (NEG) Urine Ethyl Alcohol Neg (NEG) White Blood Count 5.3 x10^3/uL (4.0-11.0) Red Blood Count 4.19 x10^6/uL (4.30-5.70) Hemoglobin 13.4 g/dL (13.0-17.5) Hematocrit 39.3 % (39.0-53.0) Mean Corpuscular Volume 94 fL (79-100) Mean Corpuscular Hemoglobin 32 pg (25-35) Mean Corpuscular Hemoglobin Concent 34 g/dL (31-37) Red Cell Distribution Width 13.8 % (11.5-14.5) Platelet Count 194 x10^3/uL (140-400) Neutrophils (%) (Auto) 50 % (31-73) Lymphocytes (%) (Auto) 33 % (24-48) Monocytes (%) (Auto) 12 % (0-9) Eosinophils (%) (Auto) 5 % (0-3) Basophils (%) (Auto) 1 % (0-3) Neutrophils # (Auto) 2.6 x10^3uL (1.8-7.7) Lymphocytes # (Auto) 1.7 x10^3/uL (1.0-4.8) Monocytes # (Auto) 0.6 x10^3/uL (0.0-1.1) Eosinophils # (Auto) 0.2 x10^3/uL (0.0-0.7) Basophils # (Auto) 0.0 x10^3/uL (0.0-0.2) Sodium Level 142 mmol/L (136-145) Potassium Level 4.3 mmol/L (3.5-5.1) Chloride Level 108 mmol/L (98-107) Carbon Dioxide Level 29 mmol/L (21-32) Anion Gap 5 (6-14) Blood Urea Nitrogen 5 mg/dL (8-26) Creatinine 1.2 mg/dL (0.7-1.3) Estimated GFR (Cockcroft-Gault) 91.6 Glucose Level 90 mg/dL (70-99) Calcium Level 8.8 mg/dL (8.5-10.1) Magnesium Level 1.9 mg/dL (1.8-2.4) Images EKG - sinus rhythm with NS st/t abnormalities Echo - The left ventricular systolic function is normal and the ejection fraction is within normal range. EF 65% There is normal LV segmental wall motion. No valvular disease. CT head - IMPRESSION: 1. Exam limited due to motion artifact. 2. No acute intracranial abnormality. Assessment/Plan 1. Syncope - no reoccurrence. Likely secondary to orthostasis and viral illness. Suggest event monitoring to rule out arrhythmias. Echo with normal LV function and wall motion. 2. Abnormal EKG - likely early repolarization, LVH by voltage. Angina free. No other significant risk factors for coronary disease. 3. tobaccoism - cessation encouraged Event monitoring and outpatient follow up in 1-2 weeks. Problems: JENNIFER FAM APRN Sep 01, 2017 12:22
== END 2017-09-01 11:47 | disposition home or self-care (01) | DRG 684 ==
LOC: ER 23:19 → 1 SOUTH 08-31 03:09
PROVIDERS: ADMIT Family Medicine; ATTEND Family Medicine
DX: N17.9 Acute kidney failure, unspecified (principal); E86.0 Dehydration; F17.210 Nicotine dependence, cigarettes, uncomplicated; R94.31 Abnormal electrocardiogram [ECG] [EKG]; Z83.3 Family history of diabetes mellitus; Z71.6 Tobacco abuse counseling
CPT/HCPCS: 36415; 70450; 80048; 80076; 80307; 83690; 83735; 84484; 85025; 87804; 93005; 93306; J1200; J2765; G0479; J7030